=== PATIENT | female | born 1990 | race African-American/Black ===

== ENCOUNTER 2016-12-23 22:58 | Emergency (ER) | payer SELFPAY ==
[~2016-12-23 22:58] MED LIST: CITA10TA4 PO; DEPO150I IM
[2016-12-23 23:00] VITALS: BP 97/56; PULSE 75; RESP 16; TEMP 98.7; O2SAT 98
[2016-12-31] MEDS ORDERED: DEPO150I IM (14:05)
== END 2016-12-24 00:14 | disposition left against medical advice (07) ==
LOC: NED 22:58
DX: Z53.21 Procedure and treatment not carried out due to patient leaving prior to being seen by health care provider (principal)
CPT/HCPCS: 99281

== ENCOUNTER 2017-02-16 12:50 | Emergency (ER) | payer MEDICAID ==
[~2017-02-16] VITALS: Ht 167.6 cm; Wt 60.0 kg
[~2017-02-16 12:50] MED LIST changes: +METR1TAB76 PO
[2017-02-16 12:51] VITALS: BP_SYST 135; BP_DIAS 6; BP_DIAS 62; PULSE 82; RESP 14; TEMP 98.4; O2SAT 99
[2017-02-16] MEDS ORDERED: predniSONE 20 MG TAB PO ONE (13:30)
[2017-02-16] MEDS ORDERED: DIPH25CA PO (13:55)
[2017-02-16] MEDS ORDERED: PRED20 PO (13:55)
--- NOTE | 2017-02-16 13:56 | PD ---
HPI Chief Complaint: Pain: Acute or Chronic Time Seen by Provider: 13:20 Travel History International Travel<30 days: No Contact w/Intl Traveler<30days: No Traveled to known affect area: No History of Present Illness HPI Patient is a 26-year-old female who presents to emergency room complaints of left-sided shoulder pain as well as bilateral hand pain. 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 Reports that her left shoulder hurts when she moves it or range of motion's it. Denies any injury or trauma, reports that she doesn't remember lifting anything heavy. 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 Reports that pain is only to her hands and her left shoulder. Denies any rash. Reports that she has never had these symptoms in the past. Denies fever/ chills. No other complaints. PFSH Past Medical History Anemia: Yes Anxiety: Yes Diminished Hearing: No Psychiatric: Yes Tetanus Vaccination: > 5 Years Influenza Vaccination: No ?: Not LMP: 02/09/17 : 3 Para: 1 Miscarriage: 1 Ectopic : Yes Past Surgical History Gynecologic Surgery: Yes Social History Alcohol Use: No Tobacco Use: Yes (1/2 PPD) Substance Use: No Allergies-Medications (Allergen,Severity, Reaction): Coded Allergies: *MDRO Multi-Drug Resistant Organism (Verified Adverse Reaction, Unknown, 02/16/17) MRSA (buttock-11/15/15) Reported Meds & Prescriptions Reported Meds & Active Scripts Active No Active Prescriptions or Reported Medications Review of Systems General / Constitutional: No: Fever Eyes: No: Visual changes HENT: No: Headaches Cardiovascular: No: Chest Pain or Discomfort Respiratory: No: Shortness of Breath Gastrointestinal: No: Abdominal Pain Genitourinary: No: Dysuria Musculoskeletal: Positive: Pain (left shoulder and b/l hands) Skin: No Rash Neurologic: No: Weakness Psychiatric: No: Depression Endocrine: No: Polydipsia Hematologic/Lymphatic: No: Easy Bruising Physical Exam Narrative GENERAL: Well-nourished, well-developed patient. SKIN: Focused skin assessment warm/dry. HEAD: Normocephalic. EYES: No scleral icterus. No injection or drainage. NECK: Supple, trachea midline. No JVD or lymphadenopathy. CARDIOVASCULAR: Regular rate and rhythm without murmurs, gallops, or rubs. RESPIRATORY: Breath sounds equal bilaterally. No accessory muscle use. GASTROINTESTINAL: Abdomen soft, non-tender, nondistended. MUSCULOSKELETAL: No cyanosis, or edema. Patient with normal range of motion to left shoulder - mild pain with ROM to left shoulder, no obvious deformity, RUE: normal exam, left elbow, left wrist, is no swelling to her digits of fingers to both hands, normal rom to all digits, there is no obvious open fractures, there is no cellulitis or erythema, pulses intact neurovascularly intact BACK: Nontender without obvious deformity. No CVA tenderness. Data Data Last Documented VS Vital Signs Date Time Temp Pulse Resp B/P (MAP) Pulse Ox O2 Delivery O2 Flow Rate FiO2 02/16/17 13:05 16 02/16/17 12:51 98.4 82 135/62 (86) 99 Orders Orders Prednisone (Deltasone) (02/16/17 13:30) [facility] Medical Decision Making Medical Screen Exam Complete: Yes Emergency Medical Condition: Yes Medical Record Reviewed: Yes Interpretation(s) Vital Signs Date Time Temp Pulse Resp B/P (MAP) Pulse Ox O2 Delivery O2 Flow Rate FiO2 02/16/17 13:05 16 02/16/17 12:51 98.4 82 14 135/62 (86) 99 Differential Diagnosis Possible allergic reaction, shoulder strain Narrative Course Patient complains of left shoulder pain as well as pain and swelling to bilateral hands since yesterday. On exam, patient with no obvious fracture/ swelling/deformities/signs of infection. She could be allergic to the gloves she uses at work. I do not observe any obvious swelling at this time. Discussed with patient that this could be a possible rheumatological disorder that would need to be worked up as an outpatient as there are no obvious signs of swelling or infection at this time. Patient is times suffers no emergencies , plan to start her on prednisone in the case this could be an allergic reaction. Discussed with her that she should avoid latex gloves. If symptoms progress or worsen, she is to return to the ER of to her pcp. Patient agreeable to plan of care Diagnosis Primary Impression: Shoulder pain, left Additional Impression: Bilateral hand swelling Patient Instructions: General Instructions Additional Instructions: Please follow up with your primary care doctor Return to ER if symptoms worsen or persist Please avoid using latex gloves Med/Other Pt SpecificInfo: Prescription(s) given Scripts Diphenhydramine (Diphenhydramine) 25 Mg Cap 25 MG PO Q6H Y for ALLERGIES for 5 Days, #20 CAP 0 Refills Prov: Elyssa Rodrigues DO 02/16/17 Prednisone (Prednisone) 20 Mg Tab 20 MG PO BID for 5 Days, #10 TAB 0 Refills Prov: Elyssa Rodrigues DO 02/16/17 Disposition: 01 DISCHARGE HOME Condition: Stable Elyssa Rodrigues DO Feb 16, 2017 13:56
[2017-02-16 14:10] VITALS: BP 120/81; TEMP 97.8
== END 2017-02-16 14:10 | disposition home or self-care (01) ==
LOC: NEPD 12:50
DX: M25.512 Pain in left shoulder (principal); M79.89 Other specified soft tissue disorders; F17.200 Nicotine dependence, unspecified, uncomplicated; D64.9 Anemia, unspecified; F41.9 Anxiety disorder, unspecified
CPT/HCPCS: 99283; J7512

== ENCOUNTER 2017-08-12 15:48 | Emergency (ER) | payer MEDICAID ==
[~2017-08-12 15:48] MED LIST changes: -CITA10TA4 PO; +IBUP1TAB7 PO; -METR1TAB76 PO
[2017-08-12 15:59] VITALS: BP 106/56; PULSE 73; RESP 16; TEMP 98.3; O2SAT 100
--- NOTE | 2017-08-12 16:02 | PD ---
HPI Chief Complaint: GI Complaint Time Seen by Provider: 16:02 Travel History International Travel<30 days: No Contact w/Intl Traveler<30days: No Traveled to known affect area: No History of Present Illness HPI 27-year-old female came to the emergency room with history of suprapubic pain going up to her left upper quadrant for past 2 days and she has also been lightheaded as per her. There was a bedside done which was negative. Patient does not have any vaginal discharge. The pain is sharp and comes and goes she said. No history of vomiting or nausea. No aggravating or relieving symptoms identified. Vital signs are stable. Patient was on her phone when I went in the room and did not appear to be in any distress. [facility] Past Medical History Narrative Medical List of her past medical, surgical, social and family history is reviewed from the nursing note. Anemia: Yes Anxiety: Yes Diminished Hearing: No Psychiatric: Yes : 3 Para: 1 Miscarriage: 1 Ectopic : Yes Past Surgical History Gynecologic Surgery: Yes Social History Alcohol Use: No Tobacco Use: Yes (/2 PPD) Substance Use: No Allergies-Medications (Allergen,Severity, Reaction): Coded Allergies: *MDRO Multi-Drug Resistant Organism (Verified Adverse Reaction, Unknown, ) MRSA (buttock-11/15/15) Comments List of her allergies reviewed from the nursing note Reported Meds & Prescriptions Reported Meds & Active Scripts Active No Active Prescriptions or Reported Medications Narrative Medication List of her home medications reviewed from the nursing note Review of Systems Except as stated in HPI: all other systems reviewed are Neg Gastrointestinal: Positive: Abdominal Pain Physical Exam Narrative GENERAL: Awake, alert, no obvious distress SKIN: Focused skin assessment warm/dry. HEAD: Atraumatic. Normocephalic. EYES: Pupils equal and round. No scleral icterus. No injection or drainage. ENT: No nasal bleeding or discharge. Mucous membranes pink and moist. NECK: Trachea midline. No JVD. CARDIOVASCULAR: Regular rate and rhythm. No murmur appreciated. RESPIRATORY: No accessory muscle use. Clear to auscultation. Breath sounds equal bilaterally. GASTROINTESTINAL: Abdomen soft, non-tender, nondistended. Hepatic and splenic margins not palpable. MUSCULOSKELETAL: No obvious deformities. No clubbing. No cyanosis. No edema. NEUROLOGICAL: Awake and alert. No obvious cranial nerve deficits. Motor grossly within normal limits. Normal speech. PSYCHIATRIC: Appropriate mood and affect; insight and judgment normal. Data Data Last Documented VS Orders Orders Urinalysis - C+S If Indicated (08/12/17 16:17) Ed Urine Pregnancytest Poc (08/12/17 16:17) Urine Culture (08/12/17 16:35) Labs Laboratory Tests Test 08/12/17 16:35 Urine Color YELLOW Urine Turbidity HAZY Urine pH 6.0 Urine Specific [place] 1.033 Urine Protein TRACE mg/dL Urine Glucose (UA) NEG mg/dL Urine Ketones 10 mg/dL Urine Occult Blood MOD Urine Nitrite NEG Urine Bilirubin NEG Urine Urobilinogen 2.0 MG/DL Urine Leukocyte Esterase MOD Urine RBC 94 /hpf Urine WBC 12 /hpf Urine Squamous Epithelial Cells 14 /hpf Urine Bacteria FEW /hpf Urine Mucus MANY /lpf Microscopic Urinalysis Comment CULTURE INDICATED MDM Medical Decision Making Medical Screen Exam Complete: Yes Emergency Medical Condition: Yes Medical Record Reviewed: Yes Differential Diagnosis Ovarian cyst, UTI Narrative Course 5:10 PM waiting for the UA. Bedside was negative. Case is signed over to the oncoming ER physician Procedures EKG Prior to Arrival: No Scripts No Active Prescriptions or Reported Meds Edy France MD Aug 12, 2017 16:02
[2017-08-12 17:16] LABS: BACTERIA, URINE FEW /hpf; BILIRUBIN, URINE NEG (NEG); BLOOD, URINE MOD (NEG); GLUCOSE,URINE NEG (NEG); KETONE, URINE 10 mg/dL (NEG); MUCUS URINE MANY /lpf (OCC); NITRITE,URINE NEG (NEG); SQUAMOUS EPITHELIAL CELL URINE 14 /hpf (0-5); URINE COLOR YELLOW (YELLW/STRAW); URINE LEUKOCYTE ESTERASE MOD (NEG)
--- NOTE | 2017-08-12 17:58 | PD ---
HPI Chief Complaint: GI Complaint Time Seen by Provider: 17:54 Travel History International Travel<30 days: No Contact w/Intl Traveler<30days: No Traveled to known affect area: No PFSH Past Medical History Anemia: Yes Anxiety: Yes Diminished Hearing: No Psychiatric: Yes Tetanus Vaccination: Unknown Influenza Vaccination: No ?: Unknown : 3 Para: 1 Miscarriage: 1 Ectopic : Yes Past Surgical History Gynecologic Surgery: Yes Social History Alcohol Use: No Tobacco Use: Yes (1/2 PPD) Substance Use: No Allergies-Medications (Allergen,Severity, Reaction): Coded Allergies: *MDRO Multi-Drug Resistant Organism (Verified Adverse Reaction, Unknown, ) MRSA (buttock-11/15/15) Reported Meds & Prescriptions Reported Meds & Active Scripts Active No Active Prescriptions or Reported Medications Data Data Last Documented VS Vital Signs Date Time Temp Pulse Resp B/P (MAP) Pulse Ox O2 Delivery O2 Flow Rate FiO2 08/12/17 15:59 98.3 73 16 106/56 (73) 100 Orders Orders Urinalysis - C+S If Indicated (08/12/17 16:17) Ed Urine Pregnancytest Poc (08/12/17 16:17) Urine Culture (08/12/17 16:35) Labs Laboratory Tests Test 08/12/17 16:35 Urine Color YELLOW Urine Turbidity HAZY Urine pH 6.0 Urine Specific [place] 1.033 Urine Protein TRACE mg/dL Urine Glucose (UA) NEG mg/dL Urine Ketones 10 mg/dL Urine Occult Blood MOD Urine Nitrite NEG Urine Bilirubin NEG Urine Urobilinogen 2.0 MG/DL Urine Leukocyte Esterase MOD Urine RBC 94 /hpf Urine WBC 12 /hpf Urine Squamous Epithelial Cells 14 /hpf Urine Bacteria FEW /hpf Urine Mucus MANY /lpf Microscopic Urinalysis Comment CULTURE INDICATED MDM Medical Decision Making Medical Screen Exam Complete: Yes Emergency Medical Condition: Yes Scripts No Active Prescriptions or Reported Meds Disposition: 07 AGAINST MEDICAL ADVICE Jose Newman MD Aug 12, 2017 17:58
--- NOTE | 2017-08-13 01:37 | PD ---
Data Data Last Documented VS Vital Signs Date Time Temp Pulse Resp B/P (MAP) Pulse Ox O2 Delivery O2 Flow Rate FiO2 08/12/17 15:59 98.3 73 16 106/56 (73) 100 Orders Orders Urinalysis - C+S If Indicated (08/12/17 16:17) Ed Urine Pregnancytest Poc (08/12/17 16:17) Urine Culture (08/12/17 16:35) Labs Laboratory Tests Test 08/12/17 16:35 Urine Color YELLOW Urine Turbidity HAZY Urine pH 6.0 Urine Specific [place] 1.033 Urine Protein TRACE mg/dL Urine Glucose (UA) NEG mg/dL Urine Ketones 10 mg/dL Urine Occult Blood MOD Urine Nitrite NEG Urine Bilirubin NEG Urine Urobilinogen 2.0 MG/DL Urine Leukocyte Esterase MOD Urine RBC 94 /hpf Urine WBC 12 /hpf Urine Squamous Epithelial Cells 14 /hpf Urine Bacteria FEW /hpf Urine Mucus MANY /lpf Microscopic Urinalysis Comment CULTURE INDICATED MDM Supervised Visit with MARCIANO: No Narrative Course This patient was signed out to me at 1700 shift change, I was asked to follow- up the urinalysis and disposition the patient appropriately. Urine test negative, at 1745 and went to reassess the patient and she is not in the room. We will continue to monitor for her return however it appears the patient has eloped prior to my examination. Diagnosis Primary Impression: Left against medical advice Patient Instructions: General Instructions Departure Forms: Tests/Procedures Scripts No Active Prescriptions or Reported Meds Disposition: 07 AGAINST MEDICAL ADVICE Jose Newman MD Aug 13, 2017 01:37
== END 2017-08-12 18:16 | disposition left against medical advice (07) ==
LOC: NEPD 15:48
DX: R10.30 Lower abdominal pain, unspecified (principal); R10.12 Left upper quadrant pain; F41.9 Anxiety disorder, unspecified; F17.200 Nicotine dependence, unspecified, uncomplicated; Z53.20 Procedure and treatment not carried out because of patient's decision for unspecified reasons
CPT/HCPCS: 81001; 84703; 87086; 99283

== ENCOUNTER 2017-08-21 11:17 | Emergency (ER) | payer MEDICAID ==
[2017-08-21 11:40] VITALS: BP 115/66; PULSE 77; RESP 17; TEMP 98.3; O2SAT 98
--- NOTE | 2017-08-21 11:55 | PD ---
HPI Chief Complaint: Dizziness Time Seen by Provider: 11:44 Travel History International Travel<30 days: No Contact w/Intl Traveler<30days: No Traveled to known affect area: No History of Present Illness HPI This is a 27-year-old female who presents to the emergency department having been at work when she started to feel lightheaded and dizzy. She sat down and she felt better. She says she felt very hot at the time and it lasted for several minutes, moderate severity with no associated chest pain. She says she has had some intermittent spotting but she has taken a test at home which was negative. She had an episode a week or so ago where she came to the emergency department because she was feeling lightheaded but she says this felt different because at that time she did not feel like she was going to pass out. 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 PFSH Past Medical History Anemia: Yes Anxiety: Yes Diminished Hearing: No Psychiatric: Yes ?: Not : 3 Para: 1 Miscarriage: 1 Ectopic : Yes Past Surgical History Gynecologic Surgery: Yes Social History Alcohol Use: Yes Tobacco Use: Yes (/ PPD) Substance Use: No Allergies-Medications (Allergen,Severity, Reaction): Coded Allergies: *MDRO Multi-Drug Resistant Organism (Verified Adverse Reaction, Unknown, ) MRSA (buttock-11/15/15) Reported Meds & Prescriptions Reported Meds & Active Scripts Active No Active Prescriptions or Reported Medications Review of Systems Except as stated in HPI: all other systems reviewed are Neg Physical Exam Narrative GENERAL:Well appearing, no acute distress, smells like marijuana SKIN: Focused skin assessment warm and dry. HEAD: Atraumatic. Normocephalic. EYES: Pupils equal and round. No injection or drainage. ENT: Moist mucous membranes NECK: Trachea midline. CARDIOVASCULAR: Regular rate and rhythm. No murmur appreciated. RESPIRATORY: Clear to auscultation. Breath sounds equal bilaterally. GASTROINTESTINAL: Abdomen soft, non-tender, nondistended. MUSCULOSKELETAL: No obvious deformities. NEUROLOGICAL: Awake and alert. No obvious cranial nerve deficits. Moving all extremities. PSYCHIATRIC: Appropriate mood and affect; insight and judgment normal. Data Data Last Documented VS Vital Signs Date Time Temp Pulse Resp B/P (MAP) Pulse Ox O2 Delivery O2 Flow Rate FiO2 08/21/17 11:40 98.3 77 17 115/66 (82) 98 Orders Orders Ed Urine Pregnancytest Poc (08/21/17 11:48) Electrocardiogram (08/21/17 ) Blood Glucose (08/21/17 11:48) MDM Medical Decision Making Medical Screen Exam Complete: Yes Emergency Medical Condition: Yes Interpretation(s) Afebrile, no tachycardia, normotensive Differential Diagnosis Arrhythmia, , hypoglycemia Narrative Course This is a 27 year old female who presents to the emergency department with lightheadedness and dizziness. She did not have true syncope. 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 She has a normal exam with normal vital signs. EKG is normal with no evidence of arrhythmia. Blood glucose was normal and test is negative. She is otherwise healthy and I think any further diagnostics are warranted and I think patient can safely be discharged home. Diagnosis Primary Impression: Lightheadedness Patient Instructions: General Instructions Additional Instructions: If you develop severe chest pain, shortness of breath, sweating, lightheadedness , dizziness or difficulty breathing return to the emergency department immediately. Followup with your primary care physician in 2-3 days if your symptoms are not resolved. Med/Other Pt SpecificInfo: No Change to Meds Scripts No Active Prescriptions or Reported Meds Disposition: 01 DISCHARGE HOME Condition: Stable Stefania Hart MD Aug 21, 2017 11:55
--- NOTE | 2017-08-21 15:39 | EKG ---
Date Performed: 08/21/2017 Time Performed: 12:00:19 PTAGE: 27 years EKG: Sinus rhythm POSSIBLE RIGHT VENTRICULAR CONDUCTION DELAY BORDERLINE ECG NO PREVIOUS TRACING DOCTOR: Devyn Jaramillo Interpretating Date/Time 08/21/2017 15:38:01
== END 2017-08-21 12:40 | disposition home or self-care (01) ==
LOC: NEPD 11:17
DX: R42 Dizziness and giddiness (principal); R94.31 Abnormal electrocardiogram [ECG] [EKG]; F17.200 Nicotine dependence, unspecified, uncomplicated; Z86.2 Personal history of diseases of the blood and blood-forming organs and certain disorders involving the immune mechanism; Z86.59 Personal history of other mental and behavioral disorders
CPT/HCPCS: 84703; 93005; 99283